=== PATIENT | male | born 1955 | race Caucasian/White ===

== ENCOUNTER 2018-05-04 14:10 | Emergency (ER) | payer SELFPAY ==
[~2018-05-04] VITALS: Ht 188 cm; Wt 100.0 kg
[~2018-05-04 14:10] MED LIST: AUGMENTIN875TAB PO; LISINOP/HCTZ1 TA1 PO
[2018-05-04 14:41] VITALS: BP 118/72
[2018-05-04 14:43] LABS: IMMATURE GRANULOCYTES 0.3 % (0.0-5.0); MEAN CELL VOLUME 89.3 fL CALC (80.0-100.0); MEAN CORPUSCULAR HGB 32.1 pG CALC (26.0-32.0); MEAN CORPUSCULAR HGB CONC 35.9 g/L CALC (32.0-36.0); NEUT# 7.35 thou/uL (1.82-7.42); RED BLOOD COUNT 5.61 mill/uL (4.70-6.10); RED CELL DISTRI WIDTH 12.1 % (11.5-15.5)
[2018-05-04 14:58] LABS: ALBUMIN 4.6 g/dL (3.2-5.0); BILIRUBIN, TOTAL 1.2 mg/dL (0.0-1.4); BUN 18 mg/dL (9-20); BUN/CREATININE RATIO 18 (12-20 (CALC)); CARBON DIOXIDE 23 mmol/l (22-30); CHLORIDE 97 mmol/l (95-108); GFR > 60 ML/MIN (>=60 (CALC)); GFR FOR AFR.AMER. > 60 ML/MIN (>=60 (CALC)); SGOT/AST 29 u/l (17-59); TOTAL PROTEIN 7.2 g/dL (6.3-8.2)
[2018-05-04 15:00] LABS: ALKALINE PHOSPHATASE 97 u/l (38-126); ANION GAP 20 (6-22 (CALC)); POTASSIUM 3.5 mmol/l (3.5-5.1); SODIUM 136 mmol/l (137-146)
[2018-05-04 15:10] LABS: MYOGLOBIN 196 ng/mL (0 - 121)
[2018-05-04 15:13] LABS: HEMATOCRIT 50.1 % (39.0-50.0)
== END 2018-05-04 14:41 | disposition short-term general hospital (02) | DRG 282 ==
LOC: ED 14:10
PROVIDERS: Family Medicine
DX: I21.3 ST elevation (STEMI) myocardial infarction of unspecified site (principal)

== ENCOUNTER 2019-11-12 12:08 | Emergency (ER) | payer MEDICAID ==
[~2019-11-12] VITALS: Ht 188 cm; Wt 90.0 kg
[2019-11-12 12:45] LABS: IMMATURE GRANULOCYTES 0.4 % (0.0-5.0); MEAN CELL VOLUME 89.5 fL CALC (80.0-100.0); MEAN CORPUSCULAR HGB 31.4 pG CALC (26.0-32.0); MEAN CORPUSCULAR HGB CONC 35.1 g/dL CAL (32.0-36.0); NEUT# 5.76 thou/uL (1.82-7.42); RED BLOOD COUNT 4.58 mill/uL (4.70-6.10); RED CELL DISTRI WIDTH 12.4 % (11.5-15.5)
[2019-11-12 12:56] LABS: HEMOGLOBIN 14.4 g/dl (14.0-18.0)
[2019-11-12 13:13] LABS: ALBUMIN 4.6 g/dL (3.2-5.0); ALKALINE PHOSPHATASE 122 u/l (38-126); BUN 13 mg/dL (8-23); BUN/CREATININE RATIO 13 (12-20 (CALC)); CHLORIDE 100 mmol/l (95-108); GFR > 60 ML/MIN (>=60 (CALC)); GFR FOR AFR.AMER. > 60 ML/MIN (>=60 (CALC)); LIPASE 80 u/l (23-300); POTASSIUM 3.7 mmol/l (3.5-5.1); SGOT/AST 25 u/l (19-48); SODIUM 137 mmol/l (137-146); TOTAL PROTEIN 7.5 g/dL (6.3-8.2)
[2019-11-12 13:22] LABS: ANION GAP 13 (6-22 (CALC)); BILIRUBIN, TOTAL 0.7 mg/dL (0.0-1.4); CARBON DIOXIDE 28 mmol/l (22-30)
[2019-11-12 13:26] LABS: GFR > 60 ML/MIN (>=60 (CALC)); GFR FOR AFR.AMER. > 60 ML/MIN (>=60 (CALC))
[2019-11-12 14:15] LABS: URINE BILIRUBIN - DIPSTICK NEGATIVE (NEGATIVE); URINE BLOOD DIPSTICK LARGE (NEGATIVE); URINE COLOR YELLOW; URINE GLUCOSE - DIPSTICK 500 mg/dL (NEGATIVE); URINE KETONE NEGATIVE (NEGATIVE); URINE LEUK ESTERASE NEGATIVE (NEGATIVE); URINE NITRITE - DIPSTICK NEGATIVE (Negative); URINE PROTEIN - DIPSTICK NEGATIVE (NEG-TRACE); URINE SPECIFIC GRAVITY 1.025; URINE UROBILINOGEN - DIPSTICK 0.2 E.U./dL (0.2)
[2019-11-12 14:24] LABS: URINE SQUAMOUS EPITHELIAL CELL FEW EPI/hpf (0-FEW); URINE WBC 0-2 WBC/hpf (0-5)
[2019-11-12] MEDS ORDERED: CLOPIDOGREL75 MG PO (14:25)
[2019-11-12] MEDS ORDERED: LISINOPRIL10 MG PO (14:25)
[2019-11-12] MEDS ORDERED: NORVASC5 M1 PO (14:25)
[2019-11-12] MEDS ORDERED: SPIRONOLACTONE25 MG PO (14:26)
[2019-11-12] MEDS ORDERED: METFORMIN500 M2 PO (14:26)
[2019-11-12] MEDS ORDERED: LIPITOR80 M1 PO (14:26)
[2019-11-12] MEDS ORDERED: ADULT ASPIRIN R81 MG PO (14:27)
[2019-11-12] MEDS ORDERED: TOPROL XL100 MG PO (14:27)
[2019-11-12] MEDS ORDERED: GLIPIZIDE5 MG PO (14:28)
[2019-11-12 15:00] VITALS: BP 197/92
[2019-11-12] MEDS ORDERED: REGLAN10 MG PO (15:23)
[2019-11-12] MEDS ORDERED: LORTAB 5/3255 MG PO (15:23)
[2019-11-12] MEDS ORDERED: TAMSULOSIN0.4 MG PO (16:45)
== END 2019-11-12 17:05 | disposition home or self-care (01) ==
LOC: ED 12:08
DX: N13.2 Hydronephrosis with renal and ureteral calculous obstruction (principal); I10 Essential (primary) hypertension; E11.9 Type 2 diabetes mellitus without complications; I69.354 Hemiplegia and hemiparesis following cerebral infarction affecting left non-dominant side; Z79.84 Long term (current) use of oral hypoglycemic drugs
CPT/HCPCS: Q9967

== ENCOUNTER 2023-12-08 13:41 | Emergency (ER) | payer MEDICARE, MEDICAID ==
[~2023-12-08] VITALS: Ht 188 cm; Wt 90.0 kg
[2023-12-08] VITALS (14 sets, daily range): BP systolic 125–140; BP diastolic 76–87
[~2023-12-08 13:41] MED LIST changes: +ADULT ASPIRIN R81 MG PO; +CLOPIDOGREL75 MG PO; +GLIPIZIDE5 MG PO; +LIPITOR80 M1 PO; +LISINOPRIL10 MG PO; +LORTAB 5/3255 MG PO; +METFORMIN500 M2 PO; +NORVASC5 M1 PO; +REGLAN10 MG PO; +SPIRONOLACTONE25 MG PO; +TAMSULOSIN0.4 MG PO; +TOPROL XL100 MG PO
[2023-12-08] MEDS ORDERED: ONDANSETRON HCl 4 MG/2 ML SDV IV ONE (14:45)
[2023-12-08] MEDS ORDERED: KETOROLAC TROMETHAMINE 30 MG/ML SDV IM ONE (14:45)
[2023-12-08] MEDS ORDERED: SODIUM CHLORIDE 0.9% 1,000 ML IV ONE (14:45)
[2023-12-08 15:03] LABS: BASO% 0.5 % (0-3); EOS% 3.4 % (0-8); HEMATOCRIT 46.5 % (39.0-50.0); HEMOGLOBIN 16.1 g/dl (14.0-18.0); IMMATURE GRANULOCYTES 0.3 % (0.0-5.0); LYMPH% 17.2 % (15-41); MEAN CELL VOLUME 90.1 fL CALC (80.0-100.0); MEAN CORPUSCULAR HGB 31.2 pG CALC (26.0-32.0); MEAN CORPUSCULAR HGB CONC 34.6 g/dL CAL (32.0-36.0); MONO% 6.4 % (2-13); NEUT# 4.19 thou/uL (1.82-7.42); NEUT% 72.2 % (42-76); RED BLOOD COUNT 5.16 mill/uL (4.70-6.10); RED CELL DISTRI WIDTH 12.3 % (11.5-15.5)
[2023-12-08 15:14] LABS: ALBUMIN 4.5 g/dL (3.2-5.0); BILIRUBIN, TOTAL 0.8 mg/dL (0.2-1.3); POTASSIUM 4.3 mmol/l (3.5-5.1); TOTAL PROTEIN 7.2 g/dL (6.3-8.2)
[2023-12-08 19:24] LABS: URINE BILIRUBIN - DIPSTICK Negative (NEGATIVE); URINE BLOOD DIPSTICK Trace-intact (NEGATIVE); URINE GLUCOSE - DIPSTICK 100 mg/dL (NEGATIVE); URINE KETONE Negative (NEGATIVE); URINE LEUK ESTERASE Negative (NEGATIVE); URINE NITRITE - DIPSTICK Negative (Negative); URINE PROTEIN - DIPSTICK Negative (NEG-TRACE); URINE UROBILINOGEN - DIPSTICK 0.2 E.U./dL (0.2)
[2023-12-08 19:25] LABS: URINE COLOR Yellow
[2023-12-08] MEDS ORDERED: HYDROCO/APAP1 TA9 PO (21:21)
== END 2023-12-08 23:20 | disposition home or self-care (01) ==
LOC: ED 13:41
PROVIDERS: Nurse Practitioner
DX: N28.89 Other specified disorders of kidney and ureter (principal); I10 Essential (primary) hypertension; I69.954 Hemiplegia and hemiparesis following unspecified cerebrovascular disease affecting left non-dominant side; I25.2 Old myocardial infarction
CPT/HCPCS: Q9967